=== PATIENT | female | born 1955 | race Caucasian/White ===

== ENCOUNTER → 2018-05-27 | Outpatient (REF) ==
[~2018-05-27] MED LIST: BACTRIM DS 8001 TAB PO; CALCIUM CARBONATE; CALCIUM CARBONATE PO; COUMADIN 5MG5 MG/TAB PO; GLUCOPHAGE500 MG/TAB PO; HCTZ 25MG TAB25 MG PO; HCTZ PO; LOPRESSOR100 MG PO; LORTAB 5/500 501 TAB PO; MACROBID 1100 MG/CAP PO; METFORMIN500 MG PO; MOTRIN800 MG PO; MULTIPLE VITAMI1 TAB PO; NEXIUM40 MG PO; NORVASC2.5 MG PO; PRILOSEC 20MG20 MG PO; RANITIDINE75 MG PO; SEPTRA DS 8001 TAB PO; TOPROL; TOPROL XL 25MG25 MG PO; TOPROL XL100 MG PO; TYLENOL 325MG325 MG PO; TYLENOL 650MG650 M2 PO; ULTRAM 50MG TAB50 MG PO; VICODIN 5/5001 UDTAB PO
== END ==
LOC: ZLAB.WCH 09:47
DX: Z01.89 Encounter for other specified special examinations (principal)

== ENCOUNTER 2022-02-17 11:15 | Observation (INO) | payer BC ==
[~2022-02-17] VITALS: Ht 162.6 cm; Wt 61.5 kg
[2022-02-17] MEDS ORDERED: COZAAR 50MG50 MG/TAB PO (14:06)
[2022-02-17] MEDS ORDERED: LIPITOR 10MG10 MG PO (14:07)
[2022-02-17] MEDS ORDERED: DESYREL 100MG100 MG PO (14:07)
[2022-02-17] MEDS ORDERED: ZOLOFT 50MG50 MG PO (14:08)
[2022-02-17] MEDS ORDERED: VITAMIN C500 MG PO (14:08)
[2022-02-17] MEDS ORDERED: CARDIZEM120 MG PO (14:09)
[2022-02-17] MEDS ORDERED: FIORINAL 325 MG1 CAP PO (14:10)
[2022-02-17] MEDS ORDERED: TYLENOL 325MG325 MG PO (14:11)
[2022-02-17] MEDS ORDERED: TROKEND25 (14:11)
[2022-02-17] MEDS ORDERED: TESSALON P100 MG/CAP PO (14:11)
[2022-02-17] MEDS ORDERED: PLAVIX 75MG TAB75 MG PO (14:12)
[2022-02-17 16:00] VITALS: BP 131/57; PULSE 59; TEMP 98.2
[2022-02-17 16:16] LABS: BASO % 0.4 % (0.0-2.0); EOS # 0.1 K/mm3 (0.0-0.7); EOS % 1.5 % (0.0-4.0); GRAN # 4.4 K/mm3 (1.4-6.5); GRAN % 65.1 % (42.2-75.2); HEMOGLOBIN 11.6 g/dl (12.5-16.0); LYMPH # 1.6 K/mm3 (1.2-3.4); LYMPH % 23.8 % (20.0-51.0); MEAN CELL VOLUME 93 fl (80.0-100.0); MEAN CORPUSCULAR HEMOGLOBIN 30 pg (27-31); MEAN CORPUSCULAR HGB CONC 32 g/dl (33.0-37.0); MEAN PLATELET VOLUME 11.1 fl (7.4-10.4); MONO # 0.6 K/mm3 (0.1-0.6); MONO % 9.1 % (1.7-9.3); PLATELET COUNT 229 K/mm3 (130-400); RED BLOOD COUNT 3.86 M/mm3 (4.10-5.30); REDCELL DISTRIBUTION WIDTH-CV 12.6 % (11.5-14.5)
[2022-02-17 16:19] LABS: HEMATOCRIT 35.9 % (37.0-47.0)
--- NOTE | 2022-02-17 16:35 | NUR ---
PATIENT RESTING COMFORTABLY IN BED, NO COMPLAINTS OR REQUESTS. CARDIAC LEADS IN PLACE. PACEMAKER INCISION ON LEFT CHEST SUBCLAVIAN, CLEAN, WHITE SCAR. DAUGHTER AT BEDSIDE. NO QUESTIONS OR CONCERNS AT THIS TIME. NO C/O PAIN.
[2022-02-17 16:36] LABS: BILIRUBIN,TOTAL 0.7 mg/dL (0.2-1.2); CALCIUM 8.6 mg/dL (8.4-10.2); CREATININE, serum 1.14 mg/dL (0.57-1.11); POTASSIUM 4.1 mmol/L (3.5-4.5); TOTAL PROTEIN 6.1 gm/dL (6.2-8.1)
[2022-02-17] MEDS ORDERED: TOPAMAX 25MG25 M1 PO (17:02)
[2022-02-17] MEDS ORDERED: TIAZAC120 MG PO (17:03)
--- NOTE | 2022-02-17 19:16 | NUR ---
PATIENT RESTING IN BED, NO COMPLAINTS OF PAIN. ADMISSION INTAKE, MED REC, AND ASSESSMENT COMPLETED.
[2022-02-17 20:15] VITALS: BP 129/69; PULSE 62; TEMP 97.9
[2022-02-18] VITALS (9 sets, daily range): BP systolic 93–143; BP diastolic 63–82; PULSE 64–90; TEMP 97.6–98.1
--- NOTE | 2022-02-18 05:32 | NUR ---
ASSESSMENT COMPLETE FOR THIS SHIFT. PT RESTING IN BED. PT COMPLAINED OF A HEADACHE. PT GIVEN TYLENOL FOR PAIN. PT FELT TYLENOL WAS EFFECTIVE. PT DENIED PALPITATIONS, N,V,D, SOB OR DIZZINESS. PT NPO AFTER MIDNIGHT. PT EXPRESSED NO OTHER NEEDS AT THIS TIME. CALL LIGHT WITHIN REACH.
[2022-02-18 06:39] LABS: BASO % 0.4 % (0.0-2.0); EOS # 0.1 K/mm3 (0.0-0.7); EOS % 2.6 % (0.0-4.0); GRAN % 59.1 % (42.2-75.2); HEMOGLOBIN 11.9 g/dl (12.5-16.0); LYMPH # 1.4 K/mm3 (1.2-3.4); LYMPH % 27.3 % (20.0-51.0); MEAN CELL VOLUME 91 fl (80.0-100.0); MEAN CORPUSCULAR HEMOGLOBIN 30 pg (27-31); MEAN CORPUSCULAR HGB CONC 33 g/dl (33.0-37.0); MEAN PLATELET VOLUME 11.2 fl (7.4-10.4); MONO # 0.5 K/mm3 (0.1-0.6); MONO % 10.2 % (1.7-9.3); PLATELET COUNT 203 K/mm3 (130-400); RED BLOOD COUNT 3.94 M/mm3 (4.10-5.30); REDCELL DISTRIBUTION WIDTH-CV 12.4 % (11.5-14.5)
[2022-02-18 06:48] LABS: HEMATOCRIT 35.8 % (37.0-47.0)
[2022-02-18 06:59] LABS: ANION GAP 6 mmol/L (7-16); BLOOD UREA NITROGEN 22 mg/dL (10-20); CALCIUM 8.6 mg/dL (8.4-10.2); CARBON DIOXIDE 21 mmol/L (23-31); CHLORIDE 111 mmol/L (98-107); CHOLESTEROL 152 mg/dL (0-199); CHOLESTEROL RISK RATIO 2.5; CREATININE, serum 1.21 mg/dL (0.57-1.11); GLUCOSE 108 mg/dL (70-99); HDL CHOLESTEROL 59 mg/dL (40-60); LDL CHOLESTEROL 74 mg/dL; POTASSIUM 4.1 mmol/L (3.5-4.5); SODIUM 138 mmol/L (136-145); TRIGLYCERIDE 93 mg/dL (0-149)
[2022-02-18 07:11] LABS: TROPONIN-I < 0.010 ng/mL (0.00-0.033)
--- NOTE | 2022-02-18 08:55 | NUR ---
Assessment completed, alert/oriented, vital signs stable, denies chest pain or discomfort at this time, she did report around 0700 she had a very short left side chest pressure that lasted less than a minute and she did not notify anyone, she denies any resp.difficulty and lungs CTA, denies any other symptoms or concerns, heart RRR/ Paced on telemetry, serial troponin negative, scheduled for [place] stress test this morning and has been kept NPO, family present in the room, discussed plan of care, they verbalized understanding, deny other needs at this time
--- NOTE | 2022-02-18 09:35 | NUR ---
Initial visit; Patient and two family members thanked Assistant Education Director for looking in on her and offering Spiritual Care.
--- NOTE | 2022-02-18 10:43 | NUR ---
forming process line worker met with patient to discuss discharge plan. Patient's two daughters Mary ([phone]) and Amira ([phone]) present at bedside. Patient currently lives at home alone in [place]. She reports to being fully independent with her ADL's and does not utilize any DME to assist with mobility. Patient has no home oxygen needs. PCP is Dr. Tex Paz and she utilizes [facility] for medications. Patient reports to having a DPOA-HC established listing her two daughters. Patient is scheduled to have a stress test today and echo. At this time, patient is planning on returning home with no concerns. Discharge plan: Home
--- NOTE | 2022-02-18 11:00 | NUR ---
Patient is going down to lexiscan stress test at this time
[2022-02-18] MEDS ORDERED: LIPITOR 10MG10 MG PO (13:28)
[2022-02-18] MEDS ORDERED: NORVASC 5MG5 MG/TAB PO (13:29)
[2022-02-18] MEDS ORDERED: LIPITOR 40MG TA40 MG PO (13:45)
--- NOTE | 2022-02-18 14:52 | NUR ---
Discharge orders discussed with the patient and her daughter, instructed to follow up with PCP and Cardiology as we have scheduled for her, instructed to take meds as prescrbied, scripts for Norvasc and Atorvastatin sent to pharmacy for her, instructed to stop cozaar, removed IV and tele, she is leaving with her daughter/ [employer]ER [employer] to escort them out
== END 2022-02-18 15:02 | disposition home or self-care (01) ==
LOC: COL.ER 11:15 → MEDICAL 14:22
PROVIDERS: Physician Assistant; ADMIT Internal Medicine
DX: R07.9 Chest pain, unspecified (principal); M79.89 Other specified soft tissue disorders; E11.22 Type 2 diabetes mellitus with diabetic chronic kidney disease; I12.9 Hypertensive chronic kidney disease with stage 1 through stage 4 chronic kidney disease, or unspecified chronic kidney disease; N18.30 Chronic kidney disease, stage 3 unspecified; D64.9 Anemia, unspecified; E78.5 Hyperlipidemia, unspecified; E87.2 Acidosis; G43.909 Migraine, unspecified, not intractable, without status migrainosus; F32.A Depression, unspecified; I48.91 Unspecified atrial fibrillation; Z79.84 Long term (current) use of oral hypoglycemic drugs; Z95.0 Presence of cardiac pacemaker; Z79.01 Long term (current) use of anticoagulants; Z86.73 Personal history of transient ischemic attack (TIA), and cerebral infarction without residual deficits; Z79.899 Other long term (current) drug therapy
CPT/HCPCS: 99239; A9500; G0378; J2785; J7120

== ENCOUNTER 2022-05-11 09:48 | Day surgery (SDC) | payer BC ==
[2006-07-23 11:53] VITALS: BP 145/75
[~2022-05-11] VITALS: Ht 157.5 cm; Wt 62.5 kg
[2022-05-11] VITALS (13 sets, daily range): BP systolic 81–119; BP diastolic 60–80; PULSE 54–64; TEMP 98.6
[~2022-05-11 09:48] MED LIST changes: +CARDIZEM120 MG PO; +COZAAR 50MG50 MG/TAB PO; +DESYREL 100MG100 MG PO; +FIORINAL 325 MG1 CAP PO; +LIPITOR 10MG10 MG PO; +LIPITOR 40MG TA40 MG PO; +NORVASC 5MG5 MG/TAB PO; +PLAVIX 75MG TAB75 MG PO; +TESSALON P100 MG/CAP PO; +TIAZAC120 MG PO; +TOPAMAX 25MG25 M1 PO; +TROKEND25; +VITAMIN C500 MG PO; +ZOLOFT 50MG50 MG PO
[2022-05-11 10:42] LABS: HEMOGLOBIN 10.9 g/dl (12.5-16.0); MEAN CELL VOLUME 93 fl (80.0-100.0); MEAN CORPUSCULAR HEMOGLOBIN 30 pg (27-31); MEAN CORPUSCULAR HGB CONC 32 g/dl (33.0-37.0); MEAN PLATELET VOLUME 10.7 fl (7.4-10.4); PLATELET COUNT 198 K/mm3 (130-400); RED BLOOD COUNT 3.65 M/mm3 (4.10-5.30)
[2022-05-11 10:53] LABS: HEMATOCRIT 33.9 % (37.0-47.0)
[2022-05-11 10:54] LABS: INR 1.1 (0.8-3.0); PROTHROMBIN TIME 12.7 SECONDS (9.7-12.8)
[2022-05-11 10:56] LABS: CREATININE, serum 1.04 mg/dL (0.57-1.11); PARTIAL THROMBOPLASTIN TIME 36.8 SECONDS (26.0-37.0)
[2022-05-11] MEDS ORDERED: NORVASC 5MG5 MG/TAB PO (10:58)
[2022-05-11] MEDS ORDERED: LIPITOR 40MG TA40 MG PO (10:59)
[2022-05-11] MEDS ORDERED: VITAMIND3 5000 PO (11:07)
[2022-05-11] MEDS ORDERED: INDERAL LA 60MG60 MG (11:09)
[2022-05-11] MEDS ORDERED: PEPCID AC 10MG10 MG PO (11:10)
--- NOTE | 2022-05-11 11:52 | NUR ---
SEE MERGE FOR ALL MEDICATION ADMINISTRATION TIMES, INTRA AND POST SEDATION ASSESSMENTS
--- NOTE | 2022-05-11 17:00 | NUR ---
DISCHARGE EDUCATION GIVEN TO PT, PT VERBALIZES UNDERSTANDING, PT TO WHEELCHAIR, ESCORTED TO EXIT BY THIS NURSE.
== END 2022-05-11 17:00 | disposition home or self-care (01) ==
LOC: COL.CAR 09:48
PROVIDERS: Internal Medicine Cardiovascular Disease
DX: R07.89 Other chest pain (principal); I08.3 Combined rheumatic disorders of mitral, aortic and tricuspid valves; Z95.0 Presence of cardiac pacemaker; I10 Essential (primary) hypertension
CPT/HCPCS: J1644; J2250; J3010